=== PATIENT | male | born 1985 | race Caucasian/White ===

== ENCOUNTER 2019-01-22 05:08 | Day surgery (SDC) | payer OTHER ==
[~2019-01-22] VITALS: Ht 175.3 cm; Wt 124.7 kg
[2019-01-22 05:49] LABS: BASOPHILS 0.4 % (0-2); EOSINOPHILS 2.6 % (0-7); HEMATOCRIT 29.4 % (42.0-54.0); HEMOGLOBIN 9.7 g/dL (13.5-17.5); IMMATURE GRANULOCYTES 0.2 % (0-5); LYMPHOCYTES 37.3 % (15-50); MCH 30.5 pg (26.0-34.0); MCV 92.5 fL (80.0-100.0); MEAN PLATELET VOLUME 8.9 fL (7.4-10.4); MONOCYTES 8.2 % (2-11); NEUTROPHILS 51.3 % (40-80); PLATELET COUNT 202 10x3/uL (130-400); RBC 3.18 10x6/uL (4.20-6.10); RDW 16.3 % (11.5-14.5)
[2019-01-22 06:00] LABS: CALC OSMOLALITY 278 mosm/kg (275-300); CARBON DIOXIDE 26.7 mmol/L (21.0-32.0); CHLORIDE - SERUM 104 mmol/L (98-107); CREATININE - SERUM 0.9 mg/dL (0.6-1.3); GLUCOSE 85 mg/dL (74-106); SODIUM 140 mmol/L (136-145); UREA NITROGEN 14 mg/dL (7-18); eGFR NON AFRICAN AMERICAN > 90 mL/min (90-120)
[2019-01-22] MEDS ORDERED: LISINOPRIL20 MG PO (06:16)
[2019-01-22] MEDS ORDERED: PROBIOTIC BLEN1 EACH (06:16)
[2019-01-22] MEDS ORDERED: ULTRAM50 MG PO (06:16)
[2019-01-22] MEDS ORDERED: MAXZIDE 75/501 TAB PO (06:17)
[2019-01-22] MEDS ORDERED: ZOCOR10 MG PO (06:18)
[2019-01-22] MEDS ORDERED: ALTAMIST60 ML NS (06:19)
[2019-01-22 06:33] VITALS: BP 150/85; Ht 175.3 cm; Wt 124.7 kg
--- NOTE | 2019-01-22 10:35 | NUR ---
REC'D FROM RR ACCOMPANIED BY [facility] OFFICER. DRESSING CDI TO LEFT SIDE OF NECK WITH ARIELLE DRAIN IN USE. COLA BROUGHT TO PT.
--- NOTE | 2019-01-22 11:05 | NUR ---
JOYCE SUÁREZ SERVED TO PT. DRESSING CDI.
--- NOTE | 2019-01-22 11:45 | NUR ---
TOLERATED FL DIET. IV DC'D WITH CATHETER INTACT.
--- NOTE | 2019-01-22 11:55 | NUR ---
WRITTEN AND VERBAL DC INST GIVEN TO [facility] OFFICERS ALONG WITH RX. VERBALIZED UNDERSTANDING.
--- NOTE | 2019-01-22 12:02 | NUR ---
DC'D HOME WITH [facility] OFFICERS VIA FACILITY VEHICLE. TAKEN TO VEHICLE VIA WC. STABLE AT TIME OF DC.
--- NOTE | 2019-01-22 14:51 | OP ---
PATIENT NAME: YARI MICHAEL MEDICAL RECORD: [id number] :81 LOCATION:D[facility] ADMISSION DATE: SURGEON: ANTONI PEREIRA MD DATE OF OPERATION: 01/22/2019 PREOPERATIVE DIAGNOSES: Left cervical adenopathy, rule out lymphoma. POSTOPERATIVE DIAGNOSES: Left cervical adenopathy, rule out lymphoma. PROCEDURE: Left cervical lymph node biopsy. SURGEON: Antoni Pereira MD CLAY STRUCTURE BUILDER AND SERVICER: Lázaro Howell BLOOD LOSS: 50 cc. ANESTHESIA: General. DRAINS: Times 1 (10-[place] round closed suction drainage system). 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 He now has a huge cervical lymph node on the left or several large lymph nodes. He has good cranial nerve XI function on the left. The risks, possible complications, and alternatives to the procedure were explained to the patient. He elects to proceed. Discussion specifically included, but was not limited to, bleeding requiring an emergency reoperation, cranial nerve XI injury, injury to the carotid artery or jugular vein, swelling, and the probability that this mass would not improve his dysphagia. OPERATIVE COURSE: The patient was conveyed to the operating room electively on 01/22/2019. General anesthesia was induced by the anesthesia staff. The left neck and left upper chest was sterilely prepped and draped. Utilizing hand held ultrasound, I identified the mass. It was beneath the platysma. However, it was just superficial to the carotid artery and jugular vein. A transverse incision was accomplished in the left neck. At no time during the operation was there any apparent nerve injury. I dissected down through the platysma. The sternocleidomastoid was identified and was retracted posteriorly. I identified the lymph node. I began to dissect around the lymph node bluntly as well as with the Harmonic scalpel. At this point, the node essentially ruptured. I excised portions of the capsule as well as evacuated the inner contents of the lymph node. No purulence was identified. Cultures were obtained. I irrigated with hydrogen peroxide and then packed the node cavity with fibrillar. A 10-[place] drain was brought out through the inferior flap of skin. I attempted to reapproximate the platysma; however, it really would not hold the sutures very well. The subdermis was approximated with interrupted 3-0 Vicryl. The skin was approximated with a running intracuticular 3-0 Vicryl. The drain was sutured to the skin with a 4-0 nylon suture. The patient was then extubated and conveyed to post-anesthesia care unit where he was in stable condition. He should avoid blood thinners or anti-inflammatories for several days. The drain can be removed on the of OPERATIVE REPORT [id number] ALECYARI Wilkins. There is no need for him to follow up with me in the office unless he develops a complication related to this operative procedure. I can see him on rounds out at the snf. He is at the [place] unit. TRANSINT:[id number] Voice Confirmation ID: [id number] DOCUMENT ID: [id number] ANTONI PEREIRA MD at 1451 CC: TI HUIZAR MD [id number] DICTATION DATE: 01/22/19 1001 CHIMNEY REPAIRER: 01/22/19 1113 [facility] 01/22/19 [id number] [place] [address]
[2019-01-23 16:07] LABS: ACID FAST SMEAR Negative (()); AFB SPECIMEN PROCESSING Concentration (())
[2019-01-25 13:10] LABS: FUNGUS STAIN Final report (())
[2019-01-29 17:08] LABS: FUNGUS MYCOLOGY CULTURE Preliminary report (())
== END 2019-01-22 12:02 | disposition home or self-care (01) ==
LOC: D.OPS 05:08
PROVIDERS: Anesthesiology; ATTEND Surgery
DX: T86.90 Unspecified complication of unspecified transplanted organ and tissue (principal); C80.1 Malignant (primary) neoplasm, unspecified; Z01.812 Encounter for preprocedural laboratory examination

== ENCOUNTER 2019-02-03 13:22 | Inpatient (IN) | payer MEDICAID ==
[~2019-02-03] VITALS: Ht 175.3 cm; Wt 122.5 kg
[~2019-02-03 13:22] MED LIST: ALTAMIST60 ML NS; LISINOPRIL20 MG PO; MAXZIDE 75/501 TAB PO; PROBIOTIC BLEN1 EACH; ULTRAM50 MG PO; ZOCOR10 MG PO
[2019-02-04] MEDS ORDERED: VANCOMYCIN 1 GM/1 G1 IV ×2 (12:34→12:35)
[2019-02-04 12:42] VITALS: Ht 175.3 cm; Wt 122.5 kg
--- NOTE | 2019-02-05 11:22 | OP ---
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 PROCEDURES: 1. Right infraclavicular PowerPort placement under fluoroscopic guidance. 2. Immediate surgeon interpretation of the fluoroscopic images. SURGEON: Antoni Pereira MD GARBAGE TRUCK DRIVER: None. BLOOD LOSS: Minimal. OPERATIVE COURSE: The patient was conveyed to the operating room electively on 02/04/2019. General anesthesia was induced by the anesthesia staff. The right neck and right chest were sterilely prepped and draped. I elected to place this on the right side as the patient has very bulky lymph nodes on the left and may have an occluded internal jugular vein on the left. No radiologist was present for this procedure. Static fluoroscopic images were obtained and are kept in the patient's chart. OPERATIVE COURSE: The patient was conveyed to the operating room electively on 02/04/2019. General anesthesia was induced by the anesthesia staff. The right neck and right chest were sterilely prepped and draped. Under ultrasonographic guidance, I percutaneously accessed the right internal jugular vein in an antegrade fashion. A guidewire was passed easily. A small skin josie was accomplished. A vessel dilator was used to dilate a subcutaneous tract. A counterincision was accomplished in the right infraclavicular anterior-superior right chest. Sharp dissection was carried down to level of the pectoralis fascia. A subcutaneous pocket was created in a caudad direction. I then excised some of the adipose tissue in the pocket to allow for easier access. A small skin josie was accomplished around the wire. Over the wire, a dilator sheath was advanced. I then tunneled the PowerPort catheter from the chest incision to the neck incision. I removed the dilator and wire. Through the peel-away sheath, I advanced the PowerPort catheter. It was advanced to the cavoatrial junction. It was witnessed under fluoroscopy. I shortened the catheter. I attached it to the PowerPort. The locking device was firmly engaged. The port was placed in the subcutaneous pocket. It was sutured with 3-point fixation down to the underlying pectoralis fascia. I irrigated the pocket with normal saline. The subdermis was approximated with interrupted 3-0 Vicryls. The skin was approximated with a running intracuticular 3-0 Vicryl as well as a single horizontal mattress of 4-0 Vicryl Rapide. The incision at the neck was closed with interrupted intracuticular 3-0 Vicryl as well as horizontal mattress 4-0 Vicryl Rapide. Sterile dressings were OPERATIVE REPORT [id number] YARI MICHAEL applied after I accessed the port. It accessed easily. It flushed easily with heparinized saline and also aspirated dark, nonpulsatile blood. The patient was then extubated and conveyed to the postanesthesia care unit, where he was in stable condition. The port can be used immediately. [facility] TRANSINT:[id number] Voice Confirmation ID: [id number] DOCUMENT ID: [id number] ANTONI PEREIRA MD at 1122 CC: TI HUIZAR MD [id number] DICTATION DATE: 02/04/19 1639 SOLDERING MACHINE FEEDER: 02/04/19 1726 [facility] 02/04/19 [id number] [place] [address]
== END 2019-02-04 16:25 | disposition home or self-care (01) | DRG 147 ==
LOC: D.SDCHOLD 02-04 08:34 → EEVIPCON 02-04 13:00 → D.SDCHOLD 02-04 13:00
PROVIDERS: ADMIT Surgery; ATTEND Surgery
PROC: B5131ZA Fluoroscopy of Right Jugular Veins using Low Osmolar Contrast, Guidance (ICD-10-PCS; 2019-02-04)
PROC: 05HM33Z Insertion of Infusion Device into Right Internal Jugular Vein, Percutaneous Approach (ICD-10-PCS; principal; 2019-02-04 13:00)
DX: C76.0 Malignant neoplasm of head, face and neck (principal); C79.89 Secondary malignant neoplasm of other specified sites